=== PATIENT | male | born 1990 | race Caucasian/White ===

== ENCOUNTER 2016-11-22 23:49 | Emergency (ER) | payer OTHER | END 2016-11-23 05:30 | disposition home or self-care (01) | LOC: ER1 23:49 | DX: L02.415 Cutaneous abscess of right lower limb (principal); L03.115 Cellulitis of right lower limb; F17.210 Nicotine dependence, cigarettes, uncomplicated; Z90.49 Acquired absence of other specified parts of digestive tract; Z23 Encounter for immunization | CPT/HCPCS: 10061; 87070; 87077; 87186; 87205; 90471; 90715; 99283 ==

== ENCOUNTER → 2022-04-16 | Outpatient (CLI) | payer OTHER ==
[~2022-04-16] MED LIST: BACTRIM DS TAB1 EACH PO; BACTROBAN OINT22 GM EXT; CLEOCIN HCL300 MG PO; IBUPROFEN600 MG PO; KEFLEX CAP 500500 MG PO
== END ==
LOC: CATH 03-19 10:00
DX: R55 Syncope and collapse (principal)